=== PATIENT | male | born 1970 | race Caucasian/White ===

== ENCOUNTER → 2023-09-25 | Day surgery (SDC) | payer BC ==
[~2023-09-25] MED LIST: FLU VACC QS2023-24(6MOS UP)/PF 60 MCG/0.5 ML SYRINGE IM ONE
[2023-09-25 13:33] VITALS: BP 140/96; TEMP 97.8
== END ==
LOC: CSHRAD 11:33
PROVIDERS: ATTEND Neurological Surgery
PROC: B02BY0Z Computerized Tomography (CT Scan) of Spinal Cord using Other Contrast, Unenhanced and Enhanced (ICD-10-PCS; principal; 2023-09-25)
DX: M54.16 Radiculopathy, lumbar region (principal); M48.061 Spinal stenosis, lumbar region without neurogenic claudication
CPT/HCPCS: 62304; 72132